=== PATIENT | male | born 1995 ===

== ENCOUNTER 2021-10-23 13:33 | Emergency (ER) | payer BC, SELFPAY ==
[2021-10-23 14:19] LABS: #Basophils 0.1 thou/uL (0.0-0.2); #Eosinphils 0.6 thou/uL (0.0-0.7); #Lymphocytes 2.1 thou/uL (1.20-3.40); #Monocytes 0.5 thou/uL (0.11-0.59); #Neutrophils 3.4 thou/uL (1.40-6.50); %Basophils 0.8 % (0.0-1.0); %Eosinophils 9.2 % (0.0-10.0); %Lymphocytes 31.2 % (21.0-51.0); %Monocytes 7.8 % (0.0-10.0); %Neutrophils 51.1 % (42.0-75.0); Hemoglobin 13.9 g/dL (14.0-18.0); Mean Corpuscular HGB CONC 34.2 g/dL (32.0-36.0); Mean Corpuscular Hemoglobin 30.2 pg (27.0-31.0); Mean Corpuscular Volume 88.4 fL (78.0-98.0); Mean Platelet Volume 7.4 fL (7.4-10.4); Platelet Count 138 thou/uL (130-400); RBC Distribution Width 11.6 % (11.5-14.5); White Blood Cell (WBC) Count 6.7 thou/uL (4.8-10.8)
[2021-10-23 14:41] LABS: ALT (SGPT) 49 U/L (8-55); AST (SGOT) 28 U/L (5-34); Albumin 4.7 g/dL (3.5-5.0); Alkaline Phosphatase 75 U/L (40-110); Anion Gap 11 mmol/L (10-20); BUN (Urea Nitrogen) 16 mg/dL (8.9-20.6); CK (CPK) 141 U/L (30-200); Calc. Creatinine Clearance 0 mL/min (70-130); Calcium 9.5 mg/dL (7.8-10.44); Carbon Dioxide 26 mmol/L (22-29); Chloride 105 mmol/L (98-107); Glucose 99 mg/dL (70-105); Potassium 3.3 mmol/L (3.5-5.1); Protein, Total 7.7 g/dL (6.0-8.3); Sodium 139 mmol/L (136-145)
== END 2021-10-23 15:23 | disposition home or self-care (01) ==
LOC: ERS 13:33
DX: T75.4XXA Electrocution, initial encounter (principal)
CPT/HCPCS: 71045; 80053; 82550; 85025; 93005